=== PATIENT | female | born 1985 | race Two or more races ===

== ENCOUNTER 2017-12-27 11:28 | Emergency (ER) | payer MEDICAID ==
[~2017-12-27] VITALS: Ht 162.6 cm; Wt 94.3 kg
[~2017-12-27 11:28] MED LIST: PREN27TA7 OR
[2017-12-27 12:04] VITALS: BP 122/72
== END 2017-12-27 15:19 | disposition home or self-care (01) ==
LOC: ER 11:28
DX: O23.593 Infection of other part of genital tract in pregnancy, third trimester (principal); B96.89 Other specified bacterial agents as the cause of diseases classified elsewhere; O99.333 Smoking (tobacco) complicating pregnancy, third trimester; O99.323 Drug use complicating pregnancy, third trimester; F12.10 Cannabis abuse, uncomplicated; Z3A.31 31 weeks gestation of pregnancy
CPT/HCPCS: 76805

== ENCOUNTER 2018-01-17 20:26 | Emergency (ER) | payer MEDICAID ==
[~2018-01-17] VITALS: Ht 162.6 cm; Wt 93.0 kg
[2018-01-17 20:44] VITALS: BP 123/74
== END 2018-01-17 22:44 | disposition left against medical advice (07) ==
LOC: ER 20:26
DX: O26.893 Other specified pregnancy related conditions, third trimester (principal); R05 Cough; Z53.21 Procedure and treatment not carried out due to patient leaving prior to being seen by health care provider; Z3A.31 31 weeks gestation of pregnancy

== ENCOUNTER 2018-02-01 20:30 | Observation (INO) | payer MEDICAID ==
[2018-02-01] MEDS ORDERED: TERBUTALINE SULFATE 1 MG/ML 1ML VIAL SC ONE ×2 (21:55→22:00)
[2018-02-01 22:15] LABS: Urine Bacteria NONE SEEN /hpf (None Seen); Urine Blood 2+ /uL (Negative); Urine Mucus FEW (None Seen); Urine Specific Gravity 1.037 (1.001-1.035); Urine WBC 2 /hpf (0 - 5)
[2018-02-01 22:29] LABS: Alcohol, Urine < 3.0 mg/dL (0-5); Amphetamine Screen, Urine NEGATIVE (NEGATIVE); Barbiturate Scree,Urine NEGATIVE (NEGATIVE); Benzodiazephine Screen, Urine NEGATIVE (NEGATIVE); Cannabinoid Screen, Urine NEGATIVE (NEGATIVE); Cocaine Screen, Urine NEGATIVE (NEGATIVE); Opiate Scree,Urine NEGATIVE (NEGATIVE); Phencyclidine Screen, Urine NEGATIVE (NEGATIVE)
== END 2018-02-01 23:14 | disposition home or self-care (01) | DRG 566 ==
LOC: LDRP 20:30
PROVIDERS: ADMIT Obstetrics & Gynecology; ATTEND Obstetrics & Gynecology
DX: O26.23 Pregnancy care for patient with recurrent pregnancy loss, third trimester (principal); O60.03 Preterm labor without delivery, third trimester; O46.93 Antepartum hemorrhage, unspecified, third trimester; O26.893 Other specified pregnancy related conditions, third trimester; R10.32 Left lower quadrant pain; R10.10 Upper abdominal pain, unspecified; Z87.891 Personal history of nicotine dependence; Z3A.34 34 weeks gestation of pregnancy
CPT/HCPCS: 59025; 80307; 81001; 81002; 96372; G0378; J3105; 96365; 96366

== ENCOUNTER 2018-03-02 01:44 | Inpatient (IN) | payer MEDICAID ==
[2018-03-02] VITALS (9 sets, daily range): BP systolic 90–163; BP diastolic 50–98
[~2018-03-02] VITALS: Ht 162.6 cm; Wt 97.5 kg
[2018-03-02] MEDS: LACTATED RINGER'S 1,000 ML IV SCH ×3 (02:00→12:00)
[2018-03-02] MEDS ORDERED: LACT. RINGERS/OXYTOCIN 20UNITS 1,000 ML IV SCH (02:13)
[2018-03-02] MEDS ORDERED: METHYLERGONOVINE MALEATE 0.2 MG/ML AMP IM PRN (02:15)
[2018-03-02] MEDS ORDERED: WITCH HAZEL-GLYCERIN PAD TOP PRN (02:15)
[2018-03-02] MEDS ORDERED: DERMOPLAST 60ML BOTTLE TOP PRN (02:15)
[2018-03-02] MEDS ORDERED: PHISODERM TOP SOLN 240ML BTL TOP PRN (02:15)
[2018-03-02] MEDS ORDERED: LIDOCAINE 2% (LOCAL ANESTH.) PF 5ml SDV ID PRN (02:15)
[2018-03-02] MEDS ORDERED: CARBOPROST TROMETHAMINE 250 MCG/1ML VIAL IM PRN (02:15)
[2018-03-02] MEDS ORDERED: PENICILLIN G POT 5MIL/D5 50ML 50 ML IV ONE ×2 (02:17→03:00)
[2018-03-02 02:24] LABS: Urine Bacteria MOD /hpf (None Seen); Urine Blood 1+ /uL (Negative); Urine Mucus FEW (None Seen); Urine Specific Gravity 1.023 (1.001-1.035); Urine WBC 163 /hpf (0 - 5)
[2018-03-02 02:36] LABS: Alcohol, Urine < 3.0 mg/dL (0-5); Amphetamine Screen, Urine NEGATIVE (NEGATIVE); Barbiturate Scree,Urine NEGATIVE (NEGATIVE); Benzodiazephine Screen, Urine NEGATIVE (NEGATIVE); Cannabinoid Screen, Urine NEGATIVE (NEGATIVE); Cocaine Screen, Urine NEGATIVE (NEGATIVE); Opiate Scree,Urine NEGATIVE (NEGATIVE); Phencyclidine Screen, Urine NEGATIVE (NEGATIVE)
[2018-03-02] MEDS ORDERED: MAGNESIUM SULFATE 40MG/ML 1,000 ML IV ONE (02:38)
[2018-03-02] MEDS ORDERED: MAGNESIUM SULFATE 100 ML IV ONE ×2 (02:38→02:45)
[2018-03-02] MEDS ORDERED: hydrALAZINE HCL 20 MG/ML VL ONE (02:50)
[2018-03-02 02:52] LABS: Basophils # (auto) 0.1 uL; Basophils % (auto) 0.6 % (0.0-2.0); Eosinophils # (auto) 0.2 uL; Eosinophils % (auto) 1.7 % (0.0-7.0); Hematocrit 38.3 % (36.0-46.0); Hemoglobin 12.8 g/dL (12.2-16.2); Lymphocytes % (auto) 17.3 % (10.0-50.0); Mean Corpuscular Hemoglobin 29.6 pg (28.0-32.0); Mean Corpuscular Hgb Conc. 33.3 g/dL (32.0-36.0); Mean Corpuscular Volume 88.8 fL (80.0-100.0); Monocytes # (auto) 0.6 uL; Monocytes % (auto) 5.2 % (0.0-12.0); Neutrophils # (auto) 8.9 uL; Neutrophils % (auto) 75.2 % (37.0-80.0); Nucleated Red Blood Cells % 0.1 %; Platelet Count (auto) 177 10^3/uL (140-450); Red Blood Cells 4.31 10^6/uL (4.0-5.20); Red Cell Distribution Width 13.4 % (11.8-14.3); White Blood Cell 11.8 10^3/uL (4.4-10.8)
[2018-03-02] MEDS: hydrALAZINE HCL 20 MG/ML VL IV PRN ×3 (02:54→04:16)
[2018-03-02 03:07] LABS: INR 0.88 (0.9-1.15); Partial Thromboplastin Time 28.7 sec (23.78-33.04); Prothrombin Time 9.5 sec (9.27-12.13)
[2018-03-02] MEDS: MAGNESIUM SULFATE 40MG/ML 1,000 ML IV SCH ×2 (03:12→16:30)
[2018-03-02 03:13] LABS: Albumin 2.5 g/dL (3.4-5.0); BUN/Creatinine Ratio 16.4; Bilirubin, Total 0.2 mg/dL (0.2-1.0); Calcium 8.9 mg/dL (8.5-10.1); Potassium 4.1 mmol/L (3.5-5.1); Total Protein 7.1 g/dL (6.4-8.2)
[2018-03-02] MEDS ORDERED: fentaNYL W ROPIVACAINE 150 ML EPI SCH (03:15)
[2018-03-02] MEDS ORDERED: ePHEDrine SULFATE 50 MG/ML AMP IV ONE (03:15)
[2018-03-02] MEDS ORDERED: NALOXONE HCL 0.4 MG/ML VIAL IV ONE (03:15)
[2018-03-02] MEDS ORDERED: fentaNYL CITRATE 100 MCG/2 ML VL IV ONE (03:15)
[2018-03-02] MEDS: LIDOCAINE HCL 2 %PF INJ 10ML AMP IJ ONE (04:17)
[2018-03-02] MEDS ORDERED: PENICILLIN G POT 5MILLION UNIT VIAL ONE (05:30)
[2018-03-02] MEDS ORDERED: BUTORPHANOL TARTRATE 2 MG/1 ML VIAL IV ONE (06:00)
[2018-03-02] MEDS: PENICILLIN G POTASSIUM 2,500,000 UNITS in D5W 5% 50 ML IV SCH ×2 (06:10→10:08)
[2018-03-02] MEDS ORDERED: TETRACAINE 1% INJ 2 ML VIAL IJ ONE (12:26)
[2018-03-02] MEDS ORDERED: MORPHINE SULF(PF) 0.5MG/ML 10ML VIAL ONE (12:37)
[2018-03-02] MEDS ORDERED: MIDAZOLAM HCL 1MG/1ML-2 ML VIAL ONE (12:37)
[2018-03-02] MEDS ORDERED: fentaNYL CITRATE 100 MCG/2 ML VL ONE (12:37)
[2018-03-02] MEDS ORDERED: OXYTOCIN 10 UNIT/ML 10ML VIAL ONE (12:55)
[2018-03-02] MEDS ORDERED: PHENYLEPHRINE HCL 10 MG/ML VL ONE (13:12)
[2018-03-02] MEDS ORDERED: LIDOCAINE HCL 2 %PF INJ 10ML AMP IJ ONE (13:12)
[2018-03-02] MEDS: LACT. RINGERS/OXYTOCIN 20UNITS 1,000 ML IV SCH ×2 (13:29→20:09)
[2018-03-02] MEDS ORDERED: ONDANSETRON HCL 4 MG/2 ML VIAL IV PRN ×2 (13:30→14:00)
[2018-03-02] MEDS ORDERED: NALBUPHINE HCL 10 MG/1ml INJECTION SUBCUT ONE (14:00)
[2018-03-02] MEDS ORDERED: ceFAZolin 1GM/100ML 50 ML IV SCH (14:00)
[2018-03-02] MEDS ORDERED: HYDROmorphone HCL 2 MG/ML VL IV PRN (14:00)
[2018-03-02] MEDS ORDERED: ePHEDrine SULFATE 50 MG/ML AMP IV PRN (14:00)
[2018-03-02] MEDS ORDERED: DEXAMETHASONE SOD PHOS 10MG/1ML VIAL INJ IV PRN (14:00)
[2018-03-02] MEDS ORDERED: diphenhdrAMINE HCL 50 MG/1 ML VL IV PRN (14:00)
[2018-03-02] MEDS ORDERED: NALOXONE HCL 0.4 MG/ML VIAL IV PRN (14:00)
[2018-03-02] MEDS ORDERED: LABETALOL HCL 5 MG/ML 4ML SYRINGE IV PRN (14:00)
[2018-03-02] MEDS: KETOROLAC TROMETH 30 MG/ML 1ML VIAL IV PRN ×2 (16:30→23:11)
[2018-03-02 19:53] LABS: Basophils # (auto) 0 uL; Basophils % (auto) 0.3 % (0.0-2.0); Eosinophils # (auto) 0 uL; Hematocrit 35.6 % (36.0-46.0); Hemoglobin 11.7 g/dL (12.2-16.2); Lymphocytes # (auto) 1.2 uL; Lymphocytes % (auto) 7.7 % (10.0-50.0); Mean Corpuscular Hemoglobin 29.6 pg (28.0-32.0); Mean Corpuscular Hgb Conc. 32.9 g/dL (32.0-36.0); Mean Corpuscular Volume 90.1 fL (80.0-100.0); Monocytes # (auto) 0.7 uL; Monocytes % (auto) 4.4 % (0.0-12.0); Neutrophils # (auto) 14.1 uL; Neutrophils % (auto) 87.6 % (37.0-80.0); Platelet Count (auto) 157 10^3/uL (140-450); Red Blood Cells 3.95 10^6/uL (4.0-5.20); Red Cell Distribution Width 13.5 % (11.8-14.3); White Blood Cell 16.1 10^3/uL (4.4-10.8)
[2018-03-02] MEDS: ceFAZolin 1GM/100ML 50 ML IV SCH (20:00)
[2018-03-02] MEDS: MORPHINE SULFATE 8mg/ml INJ SDV IV PRN (21:26)
[2018-03-03] VITALS (9 sets, daily range): BP systolic 95–130; BP diastolic 52–77
[2018-03-03] MEDS: LACTATED RINGER'S 1,000 ML IV SCH (02:13)
[2018-03-03] MEDS: LACT. RINGERS/OXYTOCIN 20UNITS 1,000 ML IV SCH (02:49)
[2018-03-03] MEDS: ceFAZolin 1GM/100ML 50 ML IV SCH ×2 (04:00→11:35)
[2018-03-03] MEDS: KETOROLAC TROMETH 30 MG/ML 1ML VIAL IV PRN ×2 (05:00→11:25)
[2018-03-03 06:47] LABS: Basophils # (auto) 0 uL; Basophils % (auto) 0.3 % (0.0-2.0); Eosinophils # (auto) 0.1 uL; Eosinophils % (auto) 0.7 % (0.0-7.0); Hematocrit 32.3 % (36.0-46.0); Hemoglobin 10.8 g/dL (12.2-16.2); Lymphocytes # (auto) 1.2 uL; Lymphocytes % (auto) 10.3 % (10.0-50.0); Mean Corpuscular Hemoglobin 29.8 pg (28.0-32.0); Mean Corpuscular Hgb Conc. 33.3 g/dL (32.0-36.0); Mean Corpuscular Volume 89.3 fL (80.0-100.0); Monocytes # (auto) 0.6 uL; Monocytes % (auto) 4.8 % (0.0-12.0); Neutrophils % (auto) 83.9 % (37.0-80.0); Platelet Count (auto) 144 10^3/uL (140-450); Red Blood Cells 3.62 10^6/uL (4.0-5.20); Red Cell Distribution Width 13.3 % (11.8-14.3); White Blood Cell 11.9 10^3/uL (4.4-10.8)
[2018-03-03] MEDS ORDERED: LACTATED RINGER'S 1,000 ML IV SCH (07:34)
[2018-03-03] MEDS ORDERED: BISACODYL 10 MG RECT SUPP PR PRN ×2 (07:45→08:15)
[2018-03-03] MEDS: MORPHINE SULFATE 8mg/ml INJ SDV IV PRN (07:55)
[2018-03-03] MEDS: DOCUSATE SOD 100 MG CAP PO SCH ×2 (09:39→22:00)
[2018-03-03] MEDS: SIMETHICONE 80 MG CHEWABLE TABLET PO SCH ×3 (11:35→22:00)
[2018-03-03] MEDS ORDERED: SIMETHICONE 80 MG CHEWABLE TABLET PO SCH (12:00)
[2018-03-03] MEDS: HYDROcodone-ACET 5/325MG TAB PO PRN ×2 (15:25→21:57)
[2018-03-03] MEDS: IBUPROFEN 800 MG TAB PO PRN (21:00)
[2018-03-04 04:30] VITALS: BP 144/78
[2018-03-04] MEDS: HYDROcodone-ACET 5/325MG TAB PO PRN ×3 (04:42→21:04)
[2018-03-04] MEDS: SIMETHICONE 80 MG CHEWABLE TABLET PO SCH ×4 (05:54→21:30)
[2018-03-04] MEDS: IBUPROFEN 800 MG TAB PO PRN ×2 (06:49→17:17)
[2018-03-04 06:54] VITALS: BP 126/75
[2018-03-04] MEDS: DOCUSATE SOD 100 MG CAP PO SCH ×2 (10:19→21:30)
[2018-03-04 11:00] VITALS: BP 128/80
[2018-03-04 15:00] VITALS: BP 131/76
[2018-03-04 15:06] LABS: Alcohol, Urine < 3.0 mg/dL (0-5); Amphetamine Screen, Urine NEGATIVE (NEGATIVE); Barbiturate Scree,Urine NEGATIVE (NEGATIVE); Benzodiazephine Screen, Urine NEGATIVE (NEGATIVE); Cannabinoid Screen, Urine NEGATIVE (NEGATIVE); Cocaine Screen, Urine NEGATIVE (NEGATIVE); Opiate Scree,Urine POSITIVE (NEGATIVE); Phencyclidine Screen, Urine NEGATIVE (NEGATIVE)
[2018-03-04] MEDS: SODIUM CHLOR 0.9% PF (SALINE LOCK) 10ML VIAL/SYR IV SCH ×2 (17:09→21:30)
[2018-03-04 19:30] VITALS: BP 127/82
[2018-03-04 23:32] VITALS: BP 121/81
[2018-03-05] MEDS: IBUPROFEN 800 MG TAB PO PRN (02:15)
[2018-03-05 03:30] VITALS: BP_SYST 116; BP_SYST 137; BP_DIAS 70; BP_DIAS 75
[2018-03-05] MEDS: HYDROcodone-ACET 5/325MG TAB PO PRN (05:01)
[2018-03-05] MEDS: SODIUM CHLOR 0.9% PF (SALINE LOCK) 10ML VIAL/SYR IV SCH (05:57)
[2018-03-05] MEDS: SIMETHICONE 80 MG CHEWABLE TABLET PO SCH (06:00)
[2018-03-05 06:50] VITALS: BP 121/72
== END 2018-03-05 10:00 | disposition home or self-care (01) | DRG 540 ==
LOC: OBSVTOIN 01:44 → LDRP 01:44 → INTOOBSV 01:44 → LDRP 03:31
PROVIDERS: ADMIT Obstetrics & Gynecology; ATTEND Obstetrics & Gynecology
PROC: 10D00Z1 Extraction of Products of Conception, Low, Open Approach (ICD-10-PCS; principal; 2018-03-02 12:41)
DX: O13.4 Gestational [pregnancy-induced] hypertension without significant proteinuria, complicating childbirth (principal); O72.1 Other immediate postpartum hemorrhage; O24.420 Gestational diabetes mellitus in childbirth, diet controlled; O69.81X0 Labor and delivery complicated by cord around neck, without compression, not applicable or unspecified; O32.4XX0 Maternal care for high head at term, not applicable or unspecified; O99.824 Streptococcus B carrier state complicating childbirth; O76 Abnormality in fetal heart rate and rhythm complicating labor and delivery; F17.210 Nicotine dependence, cigarettes, uncomplicated; O99.334 Smoking (tobacco) complicating childbirth; Z91.19 Patient's noncompliance with other medical treatment and regimen; Z37.0 Single live birth; Z3A.39 39 weeks gestation of pregnancy
CPT/HCPCS: 36415; 51702; 59025; 62282; 80053; 80307; 81001; 81002; 82948; 82962; 83036; 83735; 84550; 85025; 85379; 85610; 85730; 86592; 86850; 86900; 86901; 94760; 96361; 96365; 96366; 96374; 96375; G0378; J0690; J1885; J2250; J2270; J2540; J2590; J3010; J7060

== ENCOUNTER 2018-10-05 16:46 | Emergency (ER) | payer MEDICAID ==
[~2018-10-05] VITALS: Ht 162.6 cm; Wt 86.2 kg
[2018-10-05] MEDS ORDERED: ACETAMINOPHEN 500 MG TAB PO ONE ×2 (16:57→17:15)
[2018-10-05 18:05] LABS: Basophils # (auto) 0 uL; Basophils % (auto) 0.3 % (0.0-2.0); Eosinophils # (auto) 0.1 uL; Eosinophils % (auto) 0.8 % (0.0-7.0); Hematocrit 42.5 % (36.0-46.0); Hemoglobin 14.2 g/dL (12.2-16.2); Lymphocytes # (auto) 0.6 uL; Lymphocytes % (auto) 8.3 % (10.0-50.0); Mean Corpuscular Hemoglobin 29.1 pg (28.0-32.0); Mean Corpuscular Hgb Conc. 33.4 g/dL (32.0-36.0); Mean Corpuscular Volume 87.2 fL (80.0-100.0); Monocytes # (auto) 0.5 uL; Monocytes % (auto) 6.8 % (0.0-12.0); Neutrophils # (auto) 6.3 uL; Neutrophils % (auto) 83.8 % (37.0-80.0); Nucleated Red Blood Cells % 0.2 %; Platelet Count (auto) 161 10^3/uL (140-450); Red Blood Cells 4.87 10^6/uL (4.0-5.20); White Blood Cell 7.5 10^3/uL (4.4-10.8)
[2018-10-05 18:27] LABS: Albumin 3.5 g/dL (3.4-5.0); Anion Gap 6 (5-15); Blood Urea Nitrogen 7 mg/dL (7-18); Calcium 7.9 mg/dL (8.5-10.1); Carbon Dioxide 27 mmol/L (21-32); Chloride 102 mmol/L (98-107); Glucose 110 mg/dL (74-106); Magnesium 2.2 mg/dL (1.6-2.6); Potassium 3.4 mmol/L (3.5-5.1); Sodium 135 mmol/L (136-145)
[2018-10-05 18:32] LABS: Alanine Aminotransferase 62 U/L (13-56); Alkaline Phosphatase 56 U/L (45-117); Aspartate Aminotransferase 32 U/L (15-37); BUN/Creatinine Ratio 8.1; Bilirubin, Total 0.6 mg/dL (0.2-1.0); GFR African American 99 mL/min; GFR Non-African American 82 mL/min; Total Protein 7.4 g/dL (6.4-8.2)
[2018-10-05 19:30] VITALS: BP 142/86
[2018-10-05] MEDS ORDERED: cefTRIAXone SOD 1,000 MG VL IM ONE (20:30)
[2018-10-05] MEDS ORDERED: POTASSIUM EFFERVESENT TAB 25 MEQ PO ONE (20:45)
[2018-10-05] MEDS ORDERED: LIDOCAINE 2% (LOCAL ANESTH.) PF 5ml SDV ONE (21:02)
== END 2018-10-05 21:32 | disposition home or self-care (01) ==
LOC: ER 16:48
DX: J06.9 Acute upper respiratory infection, unspecified (principal); E87.6 Hypokalemia; F17.210 Nicotine dependence, cigarettes, uncomplicated; F12.10 Cannabis abuse, uncomplicated
CPT/HCPCS: 36415; 71046; 80053; 83735; 84484; 85025; 93005; 99284; J0696; J2001

== ENCOUNTER 2021-03-15 18:03 | Emergency (ER) | payer MEDICAID ==
[~2021-03-15] VITALS: Ht 162.6 cm; Wt 90.7 kg
[2021-03-15] MEDS ORDERED: cloNIDine HCL 0.1 MG TAB PO ONE (18:15)
[2021-03-15 21:24] VITALS: BP 167/98
== END 2021-03-15 22:41 | disposition left against medical advice (07) ==
LOC: ER 18:03
DX: J11.1 Influenza due to unidentified influenza virus with other respiratory manifestations (principal); Z53.21 Procedure and treatment not carried out due to patient leaving prior to being seen by health care provider; Z20.822 Contact with and (suspected) exposure to COVID-19
CPT/HCPCS: 36415; 87426